=== PATIENT | male | born 1945 | race Caucasian/White ===

== ENCOUNTER 2017-01-07 12:41 | Day surgery (SDC) | payer MEDICARE, OTHER ==
[~2017-01-07] VITALS: Ht 182.9 cm; Wt 59.0 kg
[2017-01-07] MEDS ORDERED: ceFAZolin 1GM/50ML D5W 50 ML IV ONE (14:17)
[2017-01-07] MEDS ORDERED: MITOMYCIN 40 MG in STERILE WATER 60 ML IS ONE (17:00)
[2017-01-07] MEDS ORDERED: PROPOFOL 10 MG/ML 20 ML IV ONE (17:48)
[2017-01-07] MEDS ORDERED: fentaNYL CITRATE 100 MCG/2 ML VL ONE (17:54)
[2017-01-07] MEDS ORDERED: GLYCOPYRROLATE 0.2 MG/ML 1ML VIAL ONE (17:55)
[2017-01-07] MEDS ORDERED: KETOROLAC TROMETH 60MG/2ML VIAL IM ONE (17:55)
[2017-01-07] MEDS ORDERED: ONDANSETRON HCL 4 MG/2 ML VIAL ONE (17:55)
[2017-01-07] MEDS ORDERED: DEXAMETHASONE SOD PHOS 10MG/1ML VIAL INJ ONE (17:55)
[2017-01-07 20:01] VITALS: BP 150/77
== END 2017-01-07 20:06 | disposition home or self-care (01) ==
LOC: SUR 12:41
PROVIDERS: ATTEND Urology
DX: D49.4 Neoplasm of unspecified behavior of bladder (principal); Z90.49 Acquired absence of other specified parts of digestive tract; M41.9 Scoliosis, unspecified; B19.20 Unspecified viral hepatitis C without hepatic coma; J44.9 Chronic obstructive pulmonary disease, unspecified; A15.9 Respiratory tuberculosis unspecified
CPT/HCPCS: 52234; J0690; J1100; J1885; J2405; J2704; J3010; J9280